=== PATIENT | male | born 1980 | race Caucasian/White ===

== ENCOUNTER 2017-08-25 12:06 | Inpatient (IN) | payer OTHER, SELFPAY ==
[2017-08-25 12:31] LABS: #Basophils 0.1 thou/uL (0.0-0.2); #Eosinphils 0.6 thou/uL (0.0-0.7); #Lymphocytes 2.1 thou/uL (1.20-3.40); #Monocytes 0.6 thou/uL (0.11-0.59); #Neutrophils 7.2 thou/uL (1.40-6.50); %Basophils 1.1 % (0.0-1.0); %Eosinophils 5.4 % (0.0-10.0); %Lymphocytes 20.2 % (21.0-51.0); %Monocytes 5.4 % (0.0-10.0); Hematocrit 50.3 % (42.0-52.0); Mean Platelet Volume 6.9 fL (7.4-10.4); Red Blood Cell (RBC) Count 5.07 mill/uL (4.70-6.10); White Blood Cell (WBC) Count 10.6 thou/uL (4.8-10.8)
[2017-08-25 12:42] LABS: Prothrombin Time 13.6 SEC (12.0-14.7)
[2017-08-25] MEDS ORDERED: Ondansetron HCl/PF 4 MG/2 ML Vial ONE (12:43)
[2017-08-25 12:47] LABS: ALT (SGPT) 43 U/L (8-55); AST (SGOT) 25 U/L (5-34); Alkaline Phosphatase 66 U/L (40-150); Anion Gap 12 mmol/L (10-20); BUN (Urea Nitrogen) 13 mg/dL (8.9-20.6); Bilirubin, Total 0.6 mg/dL (0.2-1.2); CK (CPK) 44 U/L (30-200); Calc. Creatinine Clearance 0 mL/min (70-130); Calcium 9.2 mg/dL (7.8-10.44); Carbon Dioxide 24 mmol/L (22-29); Chloride 106 mmol/L (98-107); Estimated GFR-MDRD 88; Globulin 3.1 g/dL (2.4-3.5); Protein, Total 7.3 g/dL (6.0-8.3)
[2017-08-25 12:51] LABS: Troponin I Less than 0.010 ng/mL (< 0.028)
--- NOTE | 2017-08-25 13:00 | CT ---
NONCONTRAST CT OF THE BRAIN: Indication: Stroke alert for right sided weakness. Comparison: None. FINDINGS: No acute infarct, hemorrhage, or hydrocephalus is present. Septum pellucidum and third ventricle are midline. Skull and soft tissues are unremarkable. IMPRESSION: No acute intracranial abnormalities. Findings were called to ER physician at 12:10 p.m. on 08-25-17. Code CR POS: VEROINQUE
--- NOTE | 2017-08-25 13:03 | RAD ---
ONE VIEW CHEST: HISTORY: Stroke. COMPARISON: None. FINDINGS: Normal cardiac silhouette. The pulmonary vessels and hilum are normal. No masses or consolidation. No pneumothorax or osseous abnormalities. IMPRESSION: No acute cardiopulmonary process. POS: VERONIQUEH
--- NOTE | 2017-08-25 15:08 | CT ---
CT ANGIOGRAM OF THE NECK WITH CONTRAST CT ANGIOGRAM OF THE HEAD WITH CONTRAST: Date: 08-25-17 History: 37-year-old male with acute stroke symptoms: Sudden onset of right upper extremity paralysis, right facial droop, dysarthria, and visual changes. Technique: IV injection of 100 ml Isovue 370. Arterial phase scan performed from aortic arch to vertex of head. Coronal and sagittal 3D MIP reconstructions. FINDINGS: The anterior and posterior intracranial circulation demonstrates no evidence of occlusion, aneurysm, or high grade stenosis of the anterior and posterior circulation of the [place] proximal a nd midlevel branches. The bilateral vertebral arteries are codominant. No calcified plaque is visual ized in any vessel of the neck or head. The aortic arch, common carotid, the brachiocephalic, right subclavian, bilateral common carotid, and bilateral internal carotid and bilateral vertebral arterie s are normal. Portions of the left subclavian artery are obscured by beam hardening artifact from de nse contrast material in the adjacent left subclavian vein. IMPRESSION: Normal. POS: VERONIQUE
[2017-08-25] MEDS ORDERED: Aspirin 325 MG TAB ONE (15:09)
[2017-08-25] MEDS ORDERED: Acetaminophen 500 MG TAB ONE (15:59)
[2017-08-25] MEDS ORDERED: ISOVUE-370 76%-LOCM 1 ML ONE (16:02)
[2017-08-25] MEDS ORDERED: Ondansetron ODT 4 MG TAB SL PRN (20:17)
[2017-08-25] MEDS ORDERED: Ondansetron HCl/PF 4 MG/2 ML Vial IVP PRN ×2 (20:17→23:04)
[2017-08-25] MEDS ORDERED: Acetaminophen 325 MG TAB PO PRN (20:17)
[2017-08-25 20:46] VITALS: BMI 33.6
[2017-08-25] MEDS ORDERED: Labetalol HCl 100 MG/20 ML VIAL SLOW IVP PRN (23:04)
[2017-08-25] MEDS ORDERED: Lorazepam 1 MG TAB PO PRN (23:04)
[2017-08-25] MEDS ORDERED: Ondansetron ODT 4 MG TAB PO PRN (23:04)
--- NOTE | 2017-08-25 23:31 | ULT ---
BILATERAL CAROTID DUPLEX ULTRASOUND WITH SPECTRAL ANALYSIS AND COLOR FLOW EVALUATION 08/25/17 HISTORY: TIA, left sided numbness, slurred speech. FINDINGS: Israel scale, color flow, doppler evaluation, with spectral analysis of the bilateral carotid arteries is performed with 2D imaging. Minimal atherosclerotic plaque is seen within the region of the right carotid bulb without significant atherosclerotic plaque seen in the left carotid artery. There is less than 50% maximal stenosis in the bilateral internal carotid arteries according to the peak systolic velocities in the ICA/CCA ratios. Peak systolic velocity in the right ICA is 80.9 cm/s with an ICA/CCA ratio of 0.73. Peak systolic velocity in the left ICA is 80.3 cm/s with an ICA/CCA ratio of 0.66. Antegrade flow is demonstrated in the vertebral arteries bilaterally. There is an elevated peak systolic velocity in the left ICA suggesting a significant stenosis. IMPRESSION: No hemodynamically significant stenosis in the bilateral internal carotid arteries. POS: JENIFER
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
[2017-08-26 05:05] LABS: Anion Gap 12 mmol/L (10-20); BUN (Urea Nitrogen) 13 mg/dL (8.9-20.6); Calc. Creatinine Clearance 184 mL/min (70-130); Calcium 8.8 mg/dL (7.8-10.44); Carbon Dioxide 24 mmol/L (22-29); Chloride 106 mmol/L (98-107); Cholesterol 177 mg/dl (< 200 Desired); Estimated GFR-MDRD Greater than 90; LDL Cholesterol, Calculated 128 mg/dL
[2017-08-26 05:36] LABS: Band 3 % (5-11); Hematocrit 45.8 % (42.0-52.0); Mean Platelet Volume 7.1 fL (7.4-10.4); Neutrophil 58 % (42-75); Reactive Lymphocytes 2 % (0-10); Red Blood Cell (RBC) Count 4.59 mill/uL (4.70-6.10)
[2017-08-26] MEDS: Famotidine 20 MG TAB PO SCH ×2 (08:35→20:43)
[2017-08-26] MEDS: Aspirin 325 mg Enteric Coated Tablet PO SCH (08:35)
[2017-08-26] MEDS: Acetaminophen 500 MG TAB PO PRN ×2 (08:54→13:58)
[2017-08-26] MEDS ORDERED: FLU VACC QS2017-18 36 mo. & older 0.5 ML SYRINGE IM ONE (09:00)
--- NOTE | 2017-08-26 09:54 | PDOC.PN ---
- Subjective Encounter Start Date: 08/26/17 Encounter Start Time: 09:53 Patient seen at bedside. LUE back to normal however still having blurry vision in his left eye. - Objective Resuscitation Status: Resuscitation Status FULL:Full Resuscitation MAR Reviewed: Yes Vital Signs & Weight: Vital Signs (12 hours) Temp Pulse Resp BP Pulse Ox 08/26/17 07:50 98.3 F 86 16 08/26/17 07:05 98.3 F 86 16 122/78 97 08/26/17 03:09 97.8 F 75 16 107/63 96 08/25/17 23:01 97.4 F L 83 20 116/67 95 Weight Weight 251 lb 12.8 oz I&O: 08/25/17 08/26/17 08/27/17 06:59 06:59 06:59 Intake Total 300 Balance 300 Result Diagrams: 08/26/17 04:04 08/26/17 04:04 Phys Exam - Physical Examination Constitutional: NAD HEENT: moist MMs Neck: no JVD Respiratory: no rales Cardiovascular: RRR Gastrointestinal: non-tender Musculoskeletal: pulses present Neurological: normal sensation, moves all 4 limbs no facial asymmetry Psychiatric: normal affect, A&O x 3 Dx/Plan (1) TIA (transient ischemic attack) Status: Suspected - Plan cont current plan of care, 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 * Await Neurology input * CTA of neck on admission revealed normal ICAs * Await MRI results * PT/OT
--- NOTE | 2017-08-26 10:00 | MRI ---
MRI BRAIN WITHOUT CONTRAST: Comparison: None. History: Right sided weakness. Technique: Multiplanar, multisequence MRI images were obtained of the brain without contrast. FINDINGS: There are scattered foci of high FLAIR signal and restricted diffusion in the bilateral cerebellar h emispheres. This is greater on the right where an area measures approximately 2.0 cm in greatest dim ension. No restricted diffusion is seen within the brain stem, chester, or above the tentorium. There is no evidence of hydrocephalus, intracranial hemorrhage, or extraaxial fluid collection. The expected flow voids are present. The corpus callosum, pituitary, and craniocervical junction are unremarkable. IMPRESSION: Multifocal acute infarctions in the cerebellar hemispheres as above. POS: VERONIQUE
--- NOTE | 2017-08-26 11:50 | CT ---
CT ANGIOGRAM OF THE NECK WITH CONTRAST CT ANGIOGRAM OF THE HEAD WITH CONTRAST: Date: 08-25-17 History: 37-year-old male with acute stroke symptoms: Sudden onset of right upper extremity paralysis, right facial droop, dysarthria, and visual changes. Technique: IV injection of 100 ml Isovue 370. Arterial phase scan performed from aortic arch to vertex of head. Coronal and sagittal 3D MIP reconstructions. FINDINGS: The anterior and posterior intracranial circulation demonstrates no evidence of occlusion, aneurysm, or high grade stenosis of the anterior and posterior circulation of the [place] proximal a nd midlevel branches. The bilateral vertebral arteries are codominant. No calcified plaque is visual ized in any vessel of the neck or head. The aortic arch, common carotid, the brachiocephalic, right subclavian, bilateral common carotid, and bilateral internal carotid and bilateral vertebral arterie s are normal. Portions of the left subclavian artery are obscured by beam hardening artifact from de nse contrast material in the adjacent left subclavian vein. IMPRESSION: Normal.
[2017-08-26] MEDS ORDERED: Zolpidem Tartrate 5 MG TAB PO SCH (20:00)
[2017-08-26] MEDS ORDERED: Atorvastatin Calcium 20 MG TAB PO SCH (21:00)
--- NOTE | 2017-08-26 22:28 | CON ---
DATE OF CONSULTATION: 08/26/2017 LOCATION: Stroke Unit 2, [place] [address]. CONSULTING PHYSICIAN: Dr. Wilde. REASON FOR CONSULTATION: Stroke. HISTORY OF PRESENT ILLNESS: The history is obtained from the chart review and from the patient who was able to provide the history. Patient is a 37-year-old right-handed male with no significant pas t medical history, who does not take any medications at home, who presented to [facility] b y air-evac after the patient developed sudden symptoms. 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 He was not able to speak. He had l eft-side weakness. He had pain behind his left eye and headache. He had difficulty hearing on the left side. He had blurry vision in both eyes and he saw floaters in both eyes, left more than right . He said he was not able to open his left eye and when he did open it, he felt nauseated and felt like throwing up. He was able to text a coworker using his right hand. He denied any recent trauma , injury, fever or chills. He had increased work recently and has been having frequent headaches on and off. He denies any history of migraine headaches. He does not take any aspirin at home. The patient was subsequently transferred over here. The patient was treated with aspirin, Tylenol, Zofran and IV n ormal saline in the ER. His NIH stroke scale was 3 and he was not felt to be a TPA candidate and he was subsequently transferred to the stroke unit for further evaluation and treatment. Currently, the patient still feels dizzy. He feels off balance. He is not able to focus with his e yes. His strength on the left side is back to normal. He has some headache. He was able to ambula te with physical therapy. He was able to do few activities with physical therapy. He was not able to do walking with one foot in front of the other. He was able to eat without any nausea. PAST MEDICAL HISTORY: Negative. PAST SURGICAL HISTORY: Negative. HOME MEDICATIONS: None. ALLERGIES: No known drug allergies. FAMILY HISTORY: Stroke. SOCIAL HISTORY: The patient lives in [place] and admits to social alcohol use, but no tobacco or il licit drug use. REVIEW OF SYSTEMS: As mentioned in the HPI, otherwise negative. PHYSICAL EXAMINATION: VITAL SIGNS: Temperature 98.5, pulse rate 71, respiratory rate 16, O2 sats 95% on room air, blood p ressure 114/67. GENERAL: Well-developed, well-nourished male, in no apparent distress. HEENT: Normocephalic, atraumatic. Normal sclerae. NECK: Supple. RESPIRATORY: Clear to auscultation bilaterally. CARDIOVASCULAR: Regular rate and rhythm. NEUROLOGIC: The patient is awake, alert, oriented x3. Speech and language intact. No aphasia, no dysarthria noted. Cranial nerves: Pupils are 2 mm and reactive to light bilaterally. Extraocular movements are intact. No nystagmus noted. Visual are full bilaterally. No facial droop not ed. Facial sensation intact and symmetric bilaterally. Motor: Normal tone and bulk. The patient had 5/5 strength in bilateral upper and lower extremities. No focal weakness or drift noted. Sensa tion intact to fine touch throughout. Coordination is intact to [id number] testing in upper extremities bilaterally and intact to [id number]-[id number] test in lower extremities. Sensation intact to fine touch throughout. Reflexes are 2+. Gait and Romberg not tested. LABORATORY DATA: CBC with normal white cell count, platelets normal. Chemistry with normal electro lytes. LFTs normal. LDL 128. IMAGING: The patient had CT head done on admission, which did not show any acute intracranial abnor malities. MRI brain without contrast was done which showed multifocal acute infarctions in bilatera l cerebellar hemispheres, greater on the right, no evidence of hydrocephalus, intracranial hemorrhag e. CT angiogram head and neck was normal. Echocardiogram was normal with ejection fraction of 55-6 0% with trace TR. IMPRESSION: 1. Acute bilateral cerebellar strokes. 2. Dizziness, off balance, difficulty with focusing with his eyes, headache still present, but impr oving. 3. Left-sided paralysis, resolved. 4. Speech deficit, resolved. RECOMMENDATIONS: 1. Recommend and agree that patient can be continued on aspirin for stroke prevention. He is on 32 5 mg aspirin and he can be continued on that. 2. Agreeing with starting patient on statin. 3. Agree with PT, OT and speech therapy, and would recommend follow up with the Physical Therapy re commendations 4. Continue medical management per primary team. 5. Advised the patient to follow up with the primary care doctor and a neurologist in [place]. No other recommendations from Neurological standpoint. Please call us with questions.
[2017-08-27] MEDS: Aspirin 325 mg Enteric Coated Tablet PO SCH (08:59)
[2017-08-27] MEDS: Famotidine 20 MG TAB PO SCH (08:59)
[2017-08-27 10:30] LABS: PTT 28.6 SEC (22.9-36.1); Prothrombin Time 13.7 SEC (12.0-14.7)
[2017-08-27 11:04] VITALS: BP 116/71; TEMP 99
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
[2017-08-28 12:47] LABS: Protein C Activity 106 % (78-152)
== END 2017-08-27 13:13 | disposition home or self-care (01) | DRG 66 ==
LOC: ERS 12:06 → 2SE 16:16 → OBSVTOIN 16:16 → 2SE 19:40
PROVIDERS: ADMIT Internal Medicine; ATTEND Internal Medicine
PROC: B030ZZZ Magnetic Resonance Imaging (MRI) of Brain (ICD-10-PCS; principal; 2017-08-26)
DX: I63.9 Cerebral infarction, unspecified (principal); G83.89 Other specified paralytic syndromes; R47.9 Unspecified speech disturbances
CPT/HCPCS: 36415; 36416; 70450; 70496; 70498; 70551; 71010; 80048; 80053; 80061; 81240; 82553; 83090; 84484; 85007; 85025; 85027; 85240; 85300; 85303; 85305; 85307; 85379; 85598; 85610; 85730; 90471; 90682; 93005; 93306; 93880; 96361; 96374; A4216; G0008; G8978-GP-CL; G8979-GP-CJ; G8987-GO-CI; G8988-GO-CI; G8989-GO-CI; G8996-GN-CH; G8997-GN-CH; J2405; Q2036